=== PATIENT | male | born 1980 | race Caucasian/White ===

== ENCOUNTER 2016-09-29 21:58 | Emergency (ER) | payer BC ==
[~2016-09-29 21:58] MED LIST: PAXIL40 M1 PO
[2016-09-29] MEDS ORDERED: PRILOSEC OTC20 M1 PO (22:08)
[2016-09-29] MEDS ORDERED: PROPRANOLOL HCL10 M1 PO (22:08)
[2016-09-29 23:02] LABS: URINE APPEARANCE SL CLOUDY; URINE BILIRUBIN NEGATIVE (NEG); URINE BLOOD NEGATIVE (NEG); URINE COLOR YELLOW; URINE GLUCOSE (UA) NEGATIVE (NEG); URINE KETONE NEGATIVE (NEG); URINE LEUKOCYTE ESTERASE NEGATIVE (NEG); URINE NITRITE NEGATIVE (NEG); URINE PROTEIN SMALL (NEG); URINE SPECIFIC GRAVITY 1.025 (1.003-1.030)
[2016-09-29 23:17] LABS: URINE WBC 0 /[HPF] (0-5)
[2016-09-29 23:18] LABS: URINE BACTERIA 1+; URINE EPITHELIAL CELLS 0-1 /[HPF] (0-10)
== END 2016-09-29 23:34 ==
LOC: EDMED 21:58
PROVIDERS: Emergency Medicine
DX: F41.9 Anxiety disorder, unspecified (principal); R50.9 Fever, unspecified; I10 Essential (primary) hypertension; K21.9 Gastro-esophageal reflux disease without esophagitis; Z79.899 Other long term (current) drug therapy